=== PATIENT | male | born 1965 | race Caucasian/White ===

== ENCOUNTER 2017-10-20 00:04 | Emergency (ER) | payer OTHER ==
[~2017-10-20] VITALS: Ht 177.8 cm; Wt 86.2 kg
[~2017-10-20 00:04] MED LIST: ASPI81EC; BISA5EC; FISH1000; Garlic1 EACH; LANS15EC; LOSARTAN POTAS100 MG; MINOIL; MIRALAX; MULVITMIND; OLME20; PSEU120ER
[2017-10-20] MEDS ORDERED: Buspirone HCl10 MG PO (00:33)
[2017-10-20] MEDS ORDERED: Zoloft25 MG PO (02:21)
== END 2017-10-20 02:30 | disposition home or self-care (01) ==
LOC: ER 00:04
DX: F32.9 Major depressive disorder, single episode, unspecified (principal); I10 Essential (primary) hypertension; Z79.82 Long term (current) use of aspirin; Z79.899 Other long term (current) drug therapy; Z87.891 Personal history of nicotine dependence
CPT/HCPCS: 99284; Q3014

== ENCOUNTER → 2021-04-30 | Outpatient (CLI) | payer OTHER ==
[~2021-04-30] MED LIST changes: +Buspirone HCl10 MG PO; +Zoloft25 MG PO
== END | disposition home or self-care (01) ==
LOC: LAB SHORT 07:23
DX: M1A.0711 Idiopathic chronic gout, right ankle and foot, with tophus (tophi) (principal); M79.671 Pain in right foot
CPT/HCPCS: 88305; 89060